=== PATIENT | female | born 1955 | race Caucasian/White ===

== ENCOUNTER 2017-03-29 08:00 | Outpatient (CLI) | payer MEDICAID ==
[2017-03-29 18:14] LABS: BASOPHILS # (AUTO) 0.1 10^3/uL (0.0-0.1); BASOPHILS % (AUTO) 0.9 %; EOSINOPHILS # (AUTO) 0.2 10^3/uL (0.0-0.7); EOSINOPHILS % (AUTO) 1.8 %; HCT - HEMATOCRIT 43.7 % (37.0-47.0); LYMPHOCYTES # (AUTO) 2.3 10^3/uL (1.5-3.5); LYMPHOCYTES % (AUTO) 24.8 %; MEAN CORPUSCULAR HEMOGLOBIN 29.3 pg (27.0-31.0); MEAN CORPUSCULAR HGB CONC 34.3 g/dL (32.0-36.0); MEAN CORPUSCULAR VOLUME 85.2 fL (81.0-99.0); MEAN PLATELET VOLUME 7.9 fL (7.9-10.8); MONOCYTES # (AUTO) 0.5 10^3/uL (0.0-1.0); MONOCYTES % (AUTO) 5.2 %; NEUTROPHILS # (AUTO) 6.1 10^3/uL (1.5-6.6); NEUTROPHILS % (AUTO) 67.3 %; RED BLOOD COUNT 5.12 10^6/uL (4.20-5.40); RED CELL DISTRIBUTION WIDTH 13.1 % (12.0-15.0); UNCORRECTED WHITE BLOOD COUNT 9.1 x10^3/uL; WHITE BLOOD COUNT 9.1 x10^3/uL (4.8-10.8)
[2017-03-29 18:45] LABS: ALBUMIN/GLOBULIN RATIO 1.5 (1.0-2.2); BILIRUBIN,TOTAL 0.6 mg/dL (0.2-1.0); CALCIUM 9.4 mg/dL (8.5-10.3); CREATININE 0.5 mg/dL (0.4-1.0); POTASSIUM 3.6 mmol/L (3.5-5.0); TOTAL PROTEIN 7.6 g/dL (6.7-8.2)
[2017-03-29 18:58] LABS: FERRITIN 38.9 ng/mL (11.0-306.8); TOTAL T3 0.82 ng/mL (0.87-1.78)
[2017-03-29 19:09] LABS: THYROID STIMULATING HORMONE 1.6 uIU/mL (0.34-5.60)
== END 2017-03-29 08:01 | disposition home or self-care (01) ==
LOC: LAB.F 08:00
PROVIDERS: ATTEND Family Medicine
DX: E03.9 Hypothyroidism, unspecified (principal); R53.83 Other fatigue; E55.9 Vitamin D deficiency, unspecified; M19.90 Unspecified osteoarthritis, unspecified site; R26.0 Ataxic gait
CPT/HCPCS: 36415; 80053; 82306; 82728; 84439; 84443; 84480; 84481; 84482; 85025; 85651; 86140

== ENCOUNTER 2017-11-01 13:13 | Emergency (ER) | payer MEDICAID ==
[2017-11-01 13:51] LABS: BILIRUBIN,URINE NEGATIVE (NEGATIVE); GLUCOSE, URINE (UA) NEGATIVE (NEGATIVE); KETONES,URINE (UA) NEGATIVE (NEGATIVE); LEUKOCYTE ESTERASE, URINE NEGATIVE (NEGATIVE); NITRITE,URINE NEGATIVE (NEGATIVE); OCCULT BLOOD,URINE TRACE-INTA (NEGATIVE); PH,URINE 5.5 PH (5.0-7.5); PROTEIN,URINE NEGATIVE (NEGATIVE); UROBILINOGEN,URINE 0.2 (NORMAL) E.U./dL (NORMAL)
--- NOTE | 2017-11-01 13:53 | ED Physician Documentation ---
PD HPI ABD PAIN - Stated complaint Stated Complaint: R ABD PX - Chief complaint Chief Complaint: Abd Pain - History obtained from History obtained from: Patient - History of Present Illness Timing - details: Intermittant Pain level max: 10 Pain level now: 8 Quality: Aching, Sharp, Dull Location: Other (R pelvic) Improved by: Other (nothing) Worsened by: Palpation Associated symptoms: Constipation (had been constipated, but took a laxative with relief.). No: Fever, Nausea, Vomiting Recently seen: Not recently seen - Additional information Additional information: 62 yo female with history of breast CA, Stage IV with mets to the abdomen. States had a tram flap 22 years ago for breast reconstruction and states has had several abdominal wall hernias since that time. Is currently on oral hormone receptor blockers, anastrazole.. 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 Musculoskeletal: Chronic back pain - Past Surgical History Past Surgical History: No General: Gastric surgery /GRISTMILL OPERATOR: Mastectomy Other past surgical history: abdoninal wall hernias - Present Medications Home Medications: Ambulatory Orders Medication Instructions Recorded Confirmed Ibuprofen 400 mg PO DAILY 10/21/15 02/22/16 diphenhydrAMINE [Benadryl] 25 mg PO DAILY 10/21/15 02/22/16 Cetirizine [ZyrTEC] 10 mg PO DAILY #20 tablet 02/22/16 Dexamethasone [Decadron] 4 mg PO DAILY #5 tablet 02/22/16 Famotidine 20 mg PO DAILY #30 tablet 02/22/16 Loratadine [Claritin] 10 mg PO DAILY 02/22/16 02/22/16 Meloxicam [Mobic] 7.5 mg PO BID PRN #20 tablet 11/01/17 - Allergies Allergies/Adverse Reactions: Allergies Allergy/AdvReac Type Severity Reaction Status Date / Time Opioids - Morphine Analogues Allergy Nausea Verified 11/01/17 13:22 Opioids-Meperidine and Allergy Nausea Verified 11/01/17 13:22 Related [Opioids-Meperidine & Related] Opioids-Methadone and Related Allergy Nausea Verified 11/01/17 13:22 [Opioids-Methadone & Related] - Social History Does the pt smoke?: No Smoking Status: Never smoker Does the pt drink ETOH?: Yes Does the pt have substance abuse?: No - Immunizations Immunizations are current?: Yes PD ED PE NORMAL - Vitals Vital signs reviewed: Yes - General General: Alert and oriented X 3, No acute distress, Well developed/nourished - HEENT HEENT: PERRL, Moist mucous membranes - Neck Neck: Supple, no meningeal sign - Cardiac Cardiac: RRR, Strong equal pulses - Respiratory Respiratory: No respiratory distress, Clear bilaterally - Abdomen Abdomen: Soft, Non tender, Non distended, Other (mild TTP low R pelvic area. no peritoneal signs. ) - Female Female : Creative Manager present (Caroline ALLRED), Other (normal external exam. internal exam with no discharge. slight irritation to the vaginal escobedo. ) - Back Back: No CVA TTP - Derm Derm: Warm and dry, No rash - Extremities Extremities: No edema - Neuro Neuro: Alert and oriented X 3 - Psych Psych: Normal mood, Normal affect Results - Vitals Vitals: Vital Signs - 24 hr 11/01/17 11/01/17 11/01/17 13:16 15:00 18:18 Temperature 36.9 C 36.6 C 36.8 C Heart Rate 77 58 L 74 Respiratory 20 16 20 Rate Blood Pressure 116/79 167/72 H 132/72 H O2 Saturation 99 99 99 Oxygen O2 Source Room air - Labs Labs: Microbiology 11/01/17 18:00 KIERAN Preparation - Final Other - Vaginal 11/01/17 18:05 Wet Prep - Final Vaginal Laboratory Tests 11/01/17 11/01/17 11/01/17 13:25 14:00 14:00 WBC 7.6 RBC 4.91 Hgb 14.1 Hct 41.0 MCV 83.4 MCH 28.7 MCHC 34.4 RDW 12.7 Plt Count 284 MPV 7.4 L Neut # 5.0 Lymph # 1.9 [place] # 0.5 Eos # 0.1 Baso # 0.1 Absolute Nucleated RBC 0.00 Nucleated RBC % 0.0 Sodium 136 Potassium 3.7 Chloride 102 Carbon Dioxide 25 Anion Gap 9.0 BUN 13 Creatinine 0.6 Estimated GFR (MDRD) 102 Glucose 109 H Calcium 9.3 Total Bilirubin 0.3 AST 21 ALT 20 Alkaline Phosphatase 68 Total Protein 7.3 Albumin 4.4 Globulin 2.9 Albumin/Globulin Ratio 1.5 Lipase 20 L Urine Color YELLOW Urine Clarity CLEAR Urine pH 5.5 Ur Specific [place] <=1.005 Urine Protein NEGATIVE Urine Glucose (UA) NEGATIVE Urine Ketones NEGATIVE Urine Occult Blood TRACE-INTA Urine Nitrite NEGATIVE Urine Bilirubin NEGATIVE Urine Urobilinogen 0.2 (NORMAL) Ur Leukocyte Esterase NEGATIVE Ur Microscopic Review NOT INDICATED Urine Culture Comments NOT INDICATED - Rads (name of study) CT abd pelvis Radiology: Prelim report reviewed, EMP read contemporaneously, See rad report ( Negative abdomen and pelvis CT. ) pelvic US Radiology: Prelim report reviewed, EMP read contemporaneously, See rad report ( Normal postmenopausal uterus. Nonvisualized ovaries, no adnexal mass or free fluid.) PD MEDICAL DECISION MAKING - ED course Complexity details: reviewed old records, reviewed results, re-evaluated patient , considered differential, d/w patient, d/w family ED course: Patient is a 62-year-old female with abdominal pain/pelvic pain of unclear etiology. No acute laboratory findings, CT, ultrasound or physical exam findings to explain her symptoms. We will continue supportive care and follow- up with her doctor. She is well-appearing, nontoxic. Pain well controlled with Toradol. Abdomen is soft, nontender nondistended on serial exam. Tolerating p.o. without difficulty. Patient counseled regarding signs and symptoms for which I believe and urgent re-evaluation would be necessary. Patient with good understanding of and agreement to plan and is comfortable going home at this time This document was made in part using voice recognition software. While efforts are made to proofread this document, sound alike and grammatical errors may occur. Departure - Departure Disposition: 01 Home, Self Care Clinical Impression: Abdominal pain Qualifiers: Abdominal location: right lower quadrant Qualified Code(s): R10.31 - Right lower quadrant pain Condition: Good Instructions: ED Abdominal Pain Unkn Cause Follow-Up: Mervat Mcfarland MD [Primary Care Provider] - Within 1 week Prescriptions: Meloxicam [Mobic] 7.5 mg PO BID PRN #20 tablet PRN Reason: Pain Comments: The cause of your symptoms is unclear today. Return if you worsen. You may continue to use Tylenol as needed for pain at home. Discharge Date/Time: 11/01/17 18:45
[2017-11-01 13:54] LABS: CLARITY,URINE CLEAR (CLEAR)
[2017-11-01 14:06] LABS: BASOPHILS # (AUTO) 0.1 10^3/uL (0.0-0.1); BASOPHILS % (AUTO) 0.8 %; EOSINOPHILS # (AUTO) 0.1 10^3/uL (0.0-0.7); EOSINOPHILS % (AUTO) 1.8 %; HGB - HEMOGLOBIN 14.1 g/dL (12.0-16.0); LYMPHOCYTES # (AUTO) 1.9 10^3/uL (1.5-3.5); LYMPHOCYTES % (AUTO) 24.8 %; MEAN CORPUSCULAR HEMOGLOBIN 28.7 pg (27.0-31.0); MEAN CORPUSCULAR HGB CONC 34.4 g/dL (32.0-36.0); MEAN CORPUSCULAR VOLUME 83.4 fL (81.0-99.0); MEAN PLATELET VOLUME 7.4 fL (7.9-10.8); MONOCYTES # (AUTO) 0.5 10^3/uL (0.0-1.0); MONOCYTES % (AUTO) 7.1 %; NEUTROPHILS % (AUTO) 65.5 %; PLT - PLATELET COUNT 284 10^3/uL (130-450); RED BLOOD COUNT 4.91 10^6/uL (4.20-5.40); RED CELL DISTRIBUTION WIDTH 12.7 % (12.0-15.0); WHITE BLOOD COUNT 7.6 x10^3/uL (4.8-10.8)
[2017-11-01] MEDS ORDERED: KETOROLAC 60 MG/2 ML VIAL IVP STA (14:16)
[2017-11-01 14:19] LABS: ALBUMIN 4.4 g/dL (3.2-5.5); ALBUMIN/GLOBULIN RATIO 1.5 (1.0-2.2); BILIRUBIN,TOTAL 0.3 mg/dL (0.2-1.0); CALCIUM 9.3 mg/dL (8.5-10.3); CREATININE 0.6 mg/dL (0.4-1.0); TOTAL PROTEIN 7.3 g/dL (6.7-8.2)
[2017-11-01] MEDS ORDERED: IOPAMIDOL-300 100 ML VIAL ONE (16:33)
--- NOTE | 2017-11-01 17:18 | CT Report ---
EXAM: CT ABDOMEN AND PELVIS EXAM DATE: 11/01/2017 04:42 PM. CLINICAL HISTORY: Abdominal pain COMPARISONS: None. TECHNIQUE: Routine helical CT imaging was performed through the abdomen and pelvis. IV contrast: ISOV UE 300 100mL. Enteric contrast: No. Reconstructions: Coronal and sagittal. In accordance with CT protocol optimization, one or more of the following dose reduction techniques w ere utilized for this exam: automated exposure control, adjustment of mA and/or KV based on patient s ize, or use of iterative reconstructive technique. FINDINGS: Lung Bases: Unremarkable. Liver: Normal. No masses. Gallbladder/Bile Ducts: Unremarkable. Spleen: Normal. Pancreas: Normal. Adrenal Glands: Normal. Kidneys: Normal. No masses or hydronephrosis. Peritoneal Cavity/Bowel: Normal. No free fluid, free air or adenopathy. No masses or acute inflammato ry process. The appendix is well visualized and normal. Pelvic Organs: Normal. The bladder and visualized pelvic organs are within normal limits. Vasculature: No aneurysms or other significant abnormality. Bones: No significant abnormality. Other: None. IMPRESSION: Negative abdomen and pelvis CT. [facility] Referring Provider Line: [phone] SITE ID: [id number]
[2017-11-01] MEDS ORDERED: KETOROLAC 15 MG/ML VIAL IVP STA (18:07)
[2017-11-01 18:19] VITALS: BP 132/72
--- NOTE | 2017-11-02 13:21 | Ultrasound Report ---
PELVIC ULTRASOUND: 11/01/2017 INDICATION: Right pelvic pain. TECHNIQUE: Transabdominal pelvic ultrasound performed for global evaluation. Transvaginal pelvic ultrasound performed for detailed evaluation. Real-time scanning performed and static images obtained. FINDINGS: The uterus is anteverted, measuring 6.6 x 3.4 x 2.1 cm. Endometrium measures 2 mm. No focal myometrial lesion is seen. Neither ovary was confidently identified on transabdominal or transvaginal imaging, but no adnexal mass is appreciated. No free fluid is present. IMPRESSION: NORMAL POSTMENOPAUSAL UTERUS. NONVISUALIZATION OF BOTH OVARIES, BUT NO ADNEXAL MASS OR FREE FLUID IS APPRECIATED. TD: 11/02/2017 13:21
[2017-11-05] MEDS ORDERED: IOPAMIDOL-300 100 ML VIAL IVP ONE (16:04)
== END 2017-11-01 18:45 | disposition home or self-care (01) ==
LOC: ED 13:13
DX: R10.31 Right lower quadrant pain (principal); Z85.3 Personal history of malignant neoplasm of breast
CPT/HCPCS: 36415; 74177; 76830; 76856; 80053; 81003; 83690; 85025; 87210; 87220; 96374; 96376; 99283; 99284; Q9967; 81001; 87086

== ENCOUNTER 2019-04-05 09:15 | Emergency (ER) | payer MEDICAID ==
[2019-04-05 09:34] VITALS: BP 106/87
[2019-04-05] MEDS ORDERED: LIDOCAINE-EPINEPH-TETRACAINE 3 ML SYRINGE TOP STA (09:38)
--- NOTE | 2019-04-05 10:09 | XRAY Report ---
Reason: poss glass in foot Procedure Date: 04/05/2019 Accession Number: [id number] / [id number] Procedure: XR - Foot 3 View LT CPT Code: FULL RESULT: EXAM: LEFT FOOT RADIOGRAPHY EXAM DATE: 04/05/2019 10:01 AM. CLINICAL HISTORY: Poss glass in foot. COMPARISON: None. TECHNIQUE: 3 views. FINDINGS: Bones: Normal. No fractures or bone lesions. Joints: Normal. No subluxations. Soft Tissues: 2 mm radiopaque foreign body in the plantar soft tissues of the left great toe at the level of the interphalangeal joint. IMPRESSION: 2 mm radiopaque foreign body in the plantar soft tissues of the great toe, the level of the interphalangeal joint. No evidence of fracture. [facility]
--- NOTE | 2019-04-05 10:20 | ED Physician Documentation ---
History of Present Illness - Stated complaint Stated Complaint: GLASS IN L FOOT - Chief complaint Chief Complaint: Wound - History obtained from History obtained from: Patient - History of Present Illness Timing: Other (3 months) Pain level max: 5 Pain level now: 4 Improved by: Rest Worsened by: Walking - Additonal information Additional information: 63-year-old female presents complaining of feeling like she has glass in the bottom of her left foot. This been ongoing for the past 3 months. She does not recall actually stepping on any glass. She thinks that she may have pulled a shard of glass out of her foot a few weeks ago. States she went to an urgent care yesterday to have the glass removed, but when they stuck her with lidocaine, it hurt too much and so she left. No redness. There is swelling. 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 Musculoskeletal: Chronic back pain - Past Surgical History Past Surgical History: No General: Gastric surgery /SEAFOOD PREPARER: Mastectomy - Present Medications Home Medications: Ambulatory Orders Medication Instructions Recorded Confirmed Ibuprofen 600 mg PO DAILY 10/21/15 04/05/19 Salicylic Acid [Medicated [place] 1 each TP Q48H #20 adh..patch 04/05/19 Removers] - Allergies Allergies/Adverse Reactions: Allergies Allergy/AdvReac Type Severity Reaction Status Date / Time Opioids - Morphine Analogues Allergy Nausea Verified 11/01/17 13:22 Opioids-Meperidine and Allergy Nausea Verified 11/01/17 13:22 Related [Opioids-Meperidine & Related] Opioids-Methadone and Related Allergy Nausea Verified 11/01/17 13:22 [Opioids-Methadone & Related] - Social History Does the pt smoke?: No Smoking Status: Never smoker Does the pt drink ETOH?: Yes Does the pt have substance abuse?: No - Immunizations Immunizations are current?: Yes PD ED PE NORMAL - Vitals Vital signs reviewed: Yes - General General: Alert and oriented X 3, No acute distress - HEENT HEENT: Moist mucous membranes - Derm Derm: Warm and dry - Extremities Extremities: Other (L foot - 0.5cm plantar wart between 2nd and 3rd MTP joints no signs of infection) - Neuro Neuro: Alert and oriented X 3 - Psych Psych: Normal mood, Normal affect Results - Vitals Vitals: Vital Signs - 24 hr 04/05/19 09:29 Temperature 36.5 C Heart Rate 75 Respiratory 16 Rate Blood Pressure 106/87 H O2 Saturation 100 Oxygen O2 Source Room air - Rads (name of study) L foot xray Radiology: Prelim report reviewed, EMP read contemporaneously, See rad report (Possible 2 mm foreign body next to the great toe, IP joint. Otherwise normal) PD MEDICAL DECISION MAKING - ED course Complexity details: considered differential, d/w patient ED course: No glass visible on x-ray. Appears to have a plantar wart. Will place on topical salicylate and see how she progresses. We will have her follow-up with her doctor for further care. Patient counseled regarding signs and symptoms for which I believe and urgent re-evaluation would be necessary. Patient with good understanding of and agreement to plan and is comfortable going home at this time This document was made in part using voice recognition software. While efforts are made to proofread this document, sound alike and grammatical errors may occur. Departure - Departure Disposition: 01 Home, Self Care Clinical Impression: Plantar wart of left foot Condition: Good Instructions: ED Warts Plantar Follow-Up: your,doctor in 1 week for check [Other] Prescriptions: Salicylic Acid [Medicated [place] Removers] 1 each TP Q48H #20 adh..patch Comments: We will trial you on salicylic acid. You should apply the patch every 48 hours. You can secure with the duct tape as duct tape helps to remove warts as well. Your doctor may also be able to apply cryotherapy for you. Discharge Date/Time: 04/05/19 10:58
== END 2019-04-05 10:58 | disposition home or self-care (01) ==
LOC: ED 09:15
DX: B07.0 Plantar wart (principal)
CPT/HCPCS: 99283; 99284

== ENCOUNTER 2019-11-28 20:48 | Emergency (ER) | payer MEDICAID ==
--- NOTE | 2019-11-28 21:29 | ED Physician Documentation ---
PD HPI CHEST PAIN - Stated complaint Stated Complaint: CP/ASTHMATIC - Chief complaint Chief Complaint: Cardiac - History obtained from History obtained from: Patient - History of Present Illness Timing - onset: How many weeks ago (3) Timing - onset during: Rest Timing - duration: Weeks (3) Timing - details: Intermittant Pain level max: 5 Pain level now: 3 Quality: Pressure, Tightness Location: Substernal Radiation: No: Jaw, Neck, Back, Abdominal, Left upper extremity, Right upper extremity Improved by: Rest, Other (albuterol) Worsened by: Exertion Associated symptoms: Shortness of air (occasional). No: Diaphoresis, Nausea, Vomiting, Feeling faint / dizzy, General Weakness, Palpitations, Cough Similar symptoms before: Diagnosis (asthma, stage IV breast CA.) Review of Systems Ten Systems: 10 systems reviewed and negative Constitutional: denies: Fever, Chills Ears: denies: Ear pain Nose: denies: Rhinorrhea / runny nose, Congestion GI: denies: Abdominal Pain, Nausea, Vomiting, Diarrhea Skin: denies: Rash Musculoskeletal: denies: Neck pain, Back pain Neurologic: denies: Focal weakness, Numbness, Headache PD PAST MEDICAL HISTORY - Past Medical History Cardiovascular: None Respiratory: Asthma Endocrine/Autoimmune: None 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 Musculoskeletal: Chronic back pain - Past Surgical History Past Surgical History: No General: Gastric surgery /MANAGER PHOTOGRAPHY: Mastectomy - Present Medications Home Medications: Ambulatory Orders Medication Instructions Recorded Confirmed Ibuprofen 600 mg PO DAILY 10/21/15 04/05/19 Salicylic Acid [Medicated [place] 1 each TP Q48H #20 adh..patch 04/05/19 Removers] predniSONE [Prednisone] 40 mg PO DAILY #10 tablet 11/28/19 - Allergies Allergies/Adverse Reactions: Allergies Allergy/AdvReac Type Severity Reaction Status Date / Time Opioids - Morphine Analogues Allergy Nausea Verified 11/01/17 13:22 Opioids-Meperidine and Allergy Nausea Verified 11/01/17 13:22 Related [Opioids-Meperidine & Related] Opioids-Methadone and Related Allergy Nausea Verified 11/01/17 13:22 [Opioids-Methadone & Related] - Social History Does the pt smoke?: No Smoking Status: Never smoker Does the pt drink ETOH?: Yes Does the pt have substance abuse?: No - Immunizations Immunizations are current?: Yes PD ED PE NORMAL - Vitals Vital signs reviewed: Yes - General General: Alert and oriented X 3, No acute distress, Well developed/nourished - HEENT HEENT: PERRL, Moist mucous membranes - Neck Neck: Supple, no meningeal sign - Cardiac Cardiac: RRR, No murmur, Strong equal pulses - Respiratory Respiratory: No respiratory distress, Clear bilaterally - Abdomen Abdomen: Soft, Non tender, Non distended - Derm Derm: Warm and dry, No rash - Extremities Extremities: No edema, No calf tenderness / cord - Neuro Neuro: Alert and oriented X 3 - Psych Psych: Normal mood, Normal affect Results - Vitals Vitals: Vital Signs - 24 hr 11/28/19 11/28/19 11/28/19 21:00 21:44 22:03 Temperature 36.8 C Heart Rate 87 79 84 Respiratory 16 17 18 Rate Blood Pressure 117/74 108/66 106/68 O2 Saturation 99 98 98 11/28/19 11/28/19 23:09 23:39 Temperature Heart Rate 73 76 Respiratory 16 16 Rate Blood Pressure 111/72 114/78 O2 Saturation 98 97 Oxygen O2 Source Room air - EKG (time done) 2056 Rate: Rate (enter#) (80) Rhythm: NSR [place]: Normal Intervals: Normal OR QRS: Normal Ischemia: Normal ST segments - Labs Labs: Laboratory Tests 11/28/19 11/28/19 11/28/19 21:25 21:25 21:25 WBC 9.3 RBC 4.76 Hgb 13.8 Hct 41.1 MCV 86.3 MCH 29.0 MCHC 33.6 RDW 12.4 Plt Count 301 MPV 8.9 Neut # (Auto) 6.3 Lymph # (Auto) 2.0 [place] # (Auto) 0.7 Eos # (Auto) 0.1 Baso # (Auto) 0.1 Absolute Nucleated RBC 0.00 Nucleated RBC % 0.0 Sodium 141 Potassium 3.6 Chloride 104 Carbon Dioxide 26 Anion Gap 11.0 BUN 25 H Creatinine 0.7 Estimated GFR (MDRD) 85 L Glucose 108 H Calcium 9.1 Total Bilirubin 0.8 AST 20 ALT 16 Alkaline Phosphatase 78 Troponin I High Sens 3.4 Total Protein 7.0 Albumin 4.1 Globulin 2.9 Albumin/Globulin Ratio 1.4 Lipase 32 - Rads (name of study) CT pulmonary angiogram Radiology: Prelim report reviewed, EMP read contemporaneously, See rad report (No pulmonary embolus) PD MEDICAL DECISION MAKING - ED course Complexity details: reviewed results, re-evaluated patient, considered differential (No ST elevation CA, no aortic dissection, no PE, no tension pneumothorax, no aortic aneurysm), d/w patient ED course: 64-year-old female with what appears to be asthma exacerbation. Will place on a short burst of steroids. She is well-appearing, nontoxic. Afebrile. No pulmonary embolus on CT pulmonary angiogram. Normal troponin. Patient is not hypoxic. No respiratory distress. Patient counseled regarding signs and symptoms for which I believe and urgent re-evaluation would be necessary. Seven pierson with good understanding of and agreement to plan and is comfortable going home at this time This document was made in part using voice recognition software. While efforts are made to proofread this document, sound alike and grammatical errors may occur. Departure - Departure Disposition: 01 Home, Self Care Clinical Impression: Atypical chest pain Condition: Good Instructions: ED Chest Pain Atypical Unkn Cause Follow-Up: Mervat Mcfarland MD [Primary Care Provider] - Within 1 week Prescriptions: predniSONE [Prednisone] 40 mg PO DAILY #10 tablet Comments: Your testing is normal today. Follow-up with your doctor for further care. We will trial you on oral steroids. Continue your nebulizer treatment at home. Return if you worsen
[2019-11-28 21:38] LABS: BASOPHILS # (AUTO) 0.1 10^3/uL (0.0-0.1); BASOPHILS % (AUTO) 0.6 %; EOSINOPHILS # (AUTO) 0.1 10^3/uL (0.0-0.7); EOSINOPHILS % (AUTO) 1.3 %; HGB - HEMOGLOBIN 13.8 g/dL (12.0-16.0); MEAN CORPUSCULAR HGB CONC 33.6 g/dL (32.0-36.0); MEAN CORPUSCULAR VOLUME 86.3 fL (81.0-99.0); MEAN PLATELET VOLUME 8.9 fL (7.9-10.8); MONOCYTES # (AUTO) 0.7 10^3/uL (0.0-1.0); MONOCYTES % (AUTO) 7.6 %; NEUTROPHILS # (AUTO) 6.3 10^3/uL (1.5-6.6); NEUTROPHILS % (AUTO) 68.1 %; PLT - PLATELET COUNT 301 10^3/uL (130-450); RED BLOOD COUNT 4.76 10^6/uL (4.20-5.40); RED CELL DISTRIBUTION WIDTH 12.4 % (12.0-15.0); WHITE BLOOD COUNT 9.3 x10^3/uL (4.8-10.8)
[2019-11-28] MEDS ORDERED: IOVERSOL 320 100 ML VIAL IVP ONE ×2 (21:45→22:30)
[2019-11-28 21:52] LABS: ALBUMIN 4.1 g/dL (3.2-5.5); ALBUMIN/GLOBULIN RATIO 1.4 (1.0-2.2); BILIRUBIN,TOTAL 0.8 mg/dL (0.2-1.0); CALCIUM 9.1 mg/dL (8.5-10.3); CREATININE 0.7 mg/dL (0.4-1.0)
--- NOTE | 2019-11-28 23:01 | CT Report ---
Reason: chest pain, shortness of breath Procedure Date: 11/28/2019 Accession Number: [id number] / [id number] Procedure: CT - ANGIO CHEST W/WO CPT Code: Final Report FULL RESULT: EXAM: CT ANGIOGRAM CHEST EXAM DATE: 11/28/2019 10:28 PM. CLINICAL HISTORY: Chest pain, shortness of breath. COMPARISON: ABDOMEN/PELVIS W/ 11/01/2017 4:41 PM. TECHNIQUE: Routine helical imaging was performed through the chest in the pulmonary arterial phase. IV Contrast: Optiray 320. Reconstructions: Coronal 3-D MIP reconstructions. Sagittal and coronal. In accordance with CT protocol optimization, one or more of the following dose reduction techniques were utilized for this exam: automated exposure control, adjustment of mA and/or KV based on patient size, or use of iterative reconstructive technique. FINDINGS: Pulmonary Arteries: Diagnostic quality: Adequate through the segmental arteries. No evidence for acute or chronic pulmonary emboli. RV/LV is within normal limits. There is no interventricular septal bowing. There is no reflux of contrast material in the IVC. Lungs/Pleura: There is no confluent lung consolidation. No suspicious lung nodules. Nodular pleural thickening is seen along the right oblique fissure most likely secondary to intrafissural lymph nodes. No pleural effusion or pneumothorax. Mediastinum: Normal heart size. No pericardial effusion. There is a cluster of mildly enlarged right cardiophrenic angle lymph nodes. Thoracic Aorta: Unremarkable. Upper Abdomen: Unremarkable. Other: None. IMPRESSION: No pulmonary embolism or acute airspace disease. [facility]
[2019-11-28 23:40] VITALS: BP 114/78
== END 2019-11-28 23:45 | disposition home or self-care (01) ==
LOC: ED 20:48
DX: R07.89 Other chest pain (principal); J45.909 Unspecified asthma, uncomplicated; Z85.3 Personal history of malignant neoplasm of breast
CPT/HCPCS: 36415; 71275; 80053; 83690; 84484; 85025; 93005; 99284; 99285; Q9967

== ENCOUNTER 2019-12-22 00:19 | Outpatient (CLI) | payer MEDICAID | END 2019-12-22 00:20 | disposition EMS.NT | LOC: EMS 00:19 | PROVIDERS: ATTEND Surgery | DX: R25.2 Cramp and spasm (principal) ==